=== PATIENT | male | born 1965 | race Caucasian/White ===

== ENCOUNTER 2018-08-11 10:20 | Emergency (ER) | payer SELFPAY ==
[~2018-08-11] VITALS: Wt 90.8 kg
[2018-08-11] MEDS ORDERED: KETOROLAC 15 MG INJ IV STA (11:12)
[2018-08-11] MEDS ORDERED: SOD CHLORIDE 0.9% 1,000 ML IV STA (11:12)
--- NOTE | 2018-08-11 11:24 | ERD ---
ER Documentation Chief Complaint Chief Complaint r ear pain and swelling for 3 days worsening with swelling to mandible area HPI This is a 53-year-old male with a history of asthma presents ED with right ear pain times 3 days. Patient admits to swelling along the preauricular area and extending down to the mandible. Denies fever, chills, sore throat, trouble breathing, shortness of breath, wheezing, chest pain, shortness of breath, and all other symptoms. Denies history of diabetes. ROS All systems reviewed and are negative except as per history of present illness. Allergies Allergies: Coded Allergies: No Known Allergy (Unverified , 08/11/18) PMhx/Soc Medical and Surgical Hx: pt denies Surgical Hx Hx Alcohol Use: No Hx Substance Use: No Hx Tobacco Use: No Smoking Status: Never smoker FmHx Family History: No diabetes Physical Exam Vitals Vital Signs Date Temp Pulse Resp B/P (MAP) Pulse Ox O2 O2 Flow FiO2 Time Delivery Rate 08/11/18 97.7 88 18 166/87 99 10:22 (113) Physical Exam Physical Exam Vitals signs: Reviewed by me. General: Well developed, well nourished, in no acute distress. Patient is awake and alert. Head: Normocephalic, atraumatic. Eyes: Normal conjunctiva, Pupils PERRLA, EOM intact grossly ENT: The external right ear is mildly erythematous and when palpating the tragus it elicits pain, there is some mild swelling along the right preauricular area. There is no mastoid swelling or mastoid tenderness, there is no swelling along the mandible, right external auditory canal shows some white discharge resembling otitis externa, tympanic membrane visualized along right side with no bulging, erythema, purulent air-fluid line seen, no tonsillar adenopathy, exudate or erythema, Neck: Supple, no masses, lymphadenopathy or JVD, no stridor Respiratory: Clear to auscultation bilaterally with no wheezing, rhonchi, rales, no distress Cardiovascular: RRR, no murmurs, rubs, or gallops Neurologic: Alert and oriented, moving all extremities, normal speech, no focal weakness, no cerebellar signs. Normal mentation Skin: warm and dry, No rash Psych: Normal mood Result Diagram: 08/11/18 1123 08/11/18 1124 Results 24 hrs Laboratory Tests Test 08/11/18 11:23 08/11/18 11:24 White Blood Count 3.9 10^3/ul Red Blood Count 5.31 10^6/ul Hemoglobin 15.4 g/dl Hematocrit 46.9 % Mean Corpuscular Volume 88.3 fl Mean Corpuscular Hemoglobin 29.0 pg Mean Corpuscular Hemoglobin Concent 32.8 g/dl Red Cell Distribution Width 12.0 % Platelet Count 264 10^3/UL Mean Platelet Volume 11.0 fl Immature Granulocytes % 0.300 % Neutrophils % 47.8 % Lymphocytes % 38.4 % Monocytes % 9.4 % Eosinophils % 3.1 % Basophils % 1.0 % Nucleated Red Blood Cells % 0.0 /100WBC Immature Granulocytes # 0.010 10^3/ul Neutrophils # 1.9 10^3/ul Lymphocytes # 1.5 10^3/ul Monocytes # 0.4 10^3/ul Eosinophils # 0.1 10^3/ul Basophils # 0.0 10^3/ul Nucleated Red Blood Cells # 0.0 10^3/ul Lipase 134 U/L Sodium Level 140 mmol/L Potassium Level 4.4 mmol/L Chloride Level 102 mmol/L Carbon Dioxide Level 29 mmol/L Anion Gap 9 Blood Urea Nitrogen 15 mg/dl Creatinine 0.72 mg/dl Est Glomerular Filtrat Rate mL/min > 60 mL/min Glucose Level 113 mg/dl Calcium Level 9.3 mg/dl Total Bilirubin 0.2 mg/dl Direct Bilirubin 0.00 mg/dl Indirect Bilirubin 0.2 mg/dl Aspartate Amino Transf (AST/SGOT) 29 IU/L Alanine Aminotransferase (ALT/SGPT) 29 IU/L Alkaline Phosphatase 63 IU/L Total Protein 8.0 g/dl Albumin 4.6 g/dl Globulin 3.40 g/dl Albumin/Globulin Ratio 1.35 Current Medications Medications Dose Sig/Flakito Start Time Status Last (Trade) Ordered Route PRN Stop Time Admin Dose Reason Admin Ceftriaxone 50 ml @ ONCE ONCE 08/11/18 DC 08/11/18 Sodium 100 mls/hr IVPB 11:30 11:39 08/11/18 11:59 Sodium 1,000 ml @ Q1H STAT 08/11/18 DC 08/11/18 Chloride 1,000 mls/hr IV 11:12 11:39 08/11/18 12:11 Ketorolac 15 mg ONCE STAT 08/11/18 DC 08/11/18 Tromethamine IV 11:12 11:39 (Toradol) 08/11/18 11:14 10 mg ONCE ONCE 08/11/18 DC 08/11/18 Dexamethasone IV 11:30 11:39 (Decadron) 08/11/18 11:31 IV Flush 10 ml STK-MED 08/11/18 DC 08/11/18 (NS 10 ml) ONCE .ROUTE 13:38 13:56 08/11/18 13:39 Sodium 100 ml @ ud STK-MED 08/11/18 DC 08/11/18 Chloride ONCE .ROUTE 13:38 13:56 08/11/18 13:39 Iohexol 150 ml STK-MED 08/11/18 DC 08/11/18 (Omnipaque ONCE .ROUTE 13:38 13:57 300mg/ ml) 08/11/18 13:39 Procedures/MDM EKG, MONITORS, & DIAGNOSTIC IMAGING: [place] [address] Radiology Main Line: [phone] DIAGNOSTIC IMAGING REPORT Patient: MOMO RILEY : 1965 Age: 53 Sex: M MR #: [id number] DOS: 08/11/18 1105 Ordering MD: MIGUEL PAULA PA-C Location: [facility] Room/Bed: PROCEDURE: CT Maxillofacial without Contrast CLINICAL INDICATION: Right ear pain, swelling TECHNIQUE: Transaxial images were obtained through the maxillofacial region on a multi-slice scanner without the intravenous contrast administration. Sagittal and coronal re-formations were subsequently reconstructed. One or more of the following dose reduction techniques were used: - Automated exposure control. - Adjustment of the mA and/or kV according to patient size. - Use of iterative reconstruction technique. DICOM images are available. Radiation dose: CTDIvol = 53.52 mGy; DLP = 1037.05 mGy-cm. COMPARISON: No prior studies are available for comparison. FINDINGS: Osseous structures: Appear intact with no fracture or destructive process evident. There is some metal artifact from dental fillings. Paranasal sinuses: Appear well developed and well aerated with no opacification, air-fluid level or mucoperiosteal thickening evident. Mastoid air cells: Appear well pneumatized. Temporomandibular joints: Appear unremarkable. The middle ear canals are well- aerated. Orbits: The ocular globes, optic nerves, and intraorbital contents appear unremarkable. Soft tissues: The right parotid gland is larger and less clearly defined than the left parotid gland raising the suspicion of mild diffuse parotitis. There is mild stranding in the adjacent and superficial subcutaneous fat extending to the right and external auditory canal, suspicious for edema or cellulitis. No abscess is evident. A 7 mm in short diameter lymph node is seen within the superior anterior right parotid space. A 7 mm in short diameter right jugulodigastric node is identified. A 6 mm in short diameter right posterior cervical space node is evident. IMPRESSION: 1. The right parotid gland is larger than the left and less well-defined suspicious for mild diffuse right parotitis. There is stranding within the adjacent subcutaneous fat as well as the superficial subcutaneous fat extending to the right external auditory canal, suspicious for edema or cellulitis. No mature abscess is identified. 2. There is a 7 mm in short diameter right and superior anterior parotid space node, a 7 mm in short diameter right jugulodigastric node, and a 6 mm in short diameter right posterior cervical space noted. 3. The mastoid air cells and middle ear cavities appear unremarkable. 4. Otherwise, unremarkable maxillofacial CT with contrast. Physician Dada Date Time Electronically viewed and signed by Physician Dada on 08/11/2018 14:42 RH/ CC: MIGUEL PAULA PA-C [id number] LAB INTERPRETATION: CBC shows no evidence of hemorrhage or infection Chemistry shows no evidence of significant electrolyte abnormalities or renal insufficiency Liver function test shows no evidence of acute biliary or hepatic dysfunction Lipase shows no evidence of acute pancreatitis ER COURSE: The patient was given IV normal saline, rocephin, decadron, and toradol The medication was well tolerated and the patient reports improvement in symptoms. The patient was stable throughout ED course. I kept the patient and/or family informed of laboratory and diagnostic imaging results throughout the emergency room course. The patient was promptly evaluated and a treatment plan was devised based on H&P and other data. This plan was discussed with the patient who agreed and had no further questions or concerns prior to discharge. MEDICAL DECISION MAKING: []This is a 53-year-old male with a history of asthma presents ED with right ear pain times 3 days. Patient admits to swelling along the preauricular area and extending down to the mandible. I proceeded with ordering CT with contrast to rule out any mastoiditis among other ENT emergencies. The CT shows a possible right parotitis. I discussed these findings with my overseeing physician Dr. Hoover and he agrees with plan of putting patient on antibiotics as well as eardrops to cover for an otitis externa. At this time there is no ENT emergency. No evidence of sepsis, meningitis, mastoiditis, serous otitis media, Consuelo's, peritonsillar abscess, retropharyngeal abscess, epiglottitis, among others. Vitals are stable patient can be managed close outpatient follow-up. Advised patient follow-up with his primary care next 48 hours. Return to ED with any worsening symptoms DISPOSITION PLAN: We discussed follow up with the patient's primary care doctor within 24 to 48 hours. Patient counseled regarding my diagnostic impression and care plan. Prior to discharge all questions answered. Pt agrees with treatment plan and understands strict return precautions. Precautionary instructions provided including instructions to return to the ER if not improving or for any worsening or changing symptoms or concerns. SPECIALIST FOLLOW UP RECOMMENDED: None Patient has been advised to follow up with primary care in 1-2 days. Disclaimer: Inadvertent spelling and grammatical errors are likely due to EHR/dictation software use and do not reflect on the overall quality of patient care. Also, please note that the electronic time recorded on this note does not necessarily reflect the actual time of the patient encounter. Departure Diagnosis: Primary Impression: Parotitis Additional Impression: Right otitis externa Otitis externa type: unspecified type Chronicity: acute Qualified Codes: H60.501 - Unspecified acute noninfective otitis externa, right ear Condition: Stable Patient Instructions: External Ear Infection (Adult), Salivary Gland Infection Referrals: [facility] Additional Instructions: Patient advised to return to the ED immediately for new or worsening symptoms. Patient advised to follow up with primary care provider in the next 24-48 hours. Patient verbalized understanding and agrees with treatment plan and course of action. If patient has no primary care they may follow up with one of the community clinics listed on the following page or one of the options listed below [facility] + [facility] [address] [place] [id number] or [facility] [address] [place] [address] or [facility] [address] [place] [address] MIGUEL PAULA PA-C Aug 11, 2018 11:24
[2018-08-11] MEDS ORDERED: CEFTRIAXONE 1 GM/50 ML (PMX) 50 ML IVPB ONE (11:30)
[2018-08-11] MEDS ORDERED: DEXAMETHASONE 10 MG/ML 1 ML INJ IV ONE (11:30)
[2018-08-11] MEDS ORDERED: IOHEXOL 300MG/ML 150 ML BTL ONE (13:38)
[2018-08-11] MEDS ORDERED: SOD CHLORIDE 0.9% 100 ML ONE (13:38)
[2018-08-11] MEDS ORDERED: AMOX1TAB10 PO (15:03)
[2018-08-11] MEDS ORDERED: OFLO5DRO7 RIGHT EAR (15:03)
[2018-08-11 15:19] VITALS: BP 138/84; PULSE 84; RESP 16
== END 2018-08-11 15:20 | disposition home or self-care (01) ==
LOC: FTE 10:20
DX: H60.501 Unspecified acute noninfective otitis externa, right ear (principal); K11.20 Sialoadenitis, unspecified
CPT/HCPCS: 36415; 70486; 80053; 83690; 85025; 96361; 96365; 96375; 99285; J0696; J1100; J1885; J7030; Q9967